=== PATIENT | female | born 1975 | race Caucasian/White ===

== ENCOUNTER → 2018-01-04 | Outpatient (CLI) | payer MEDICAID ==
[~2018-01-04] MED LIST: ACE3 PO; CIT20 PO; CLO5 PO; CLON-303 *; DOXY-229 PO; HYDR50CA47 PO; IBU800 PO; NITR-105 PO; PER PO; TRAZ50 PO; [UNRECOGNIZED DRUG - OTHER]
--- NOTE | 2018-01-05 08:20 | RADIOLOGY IMAGING REPORT ---
FACILITY: [facility] PATIENT NAME: ANA MARÍA PURCELL : [id number] MR: [id number] V: [id number] EXAM DATE: [id number] ORDERING PHYSICIAN: IRINA JAUREGUI TECHNOLOGIST: Shira Marinelli PROCEDURE:BILATERAL DIAGNOSTIC DIGITAL MAMMOGRAM COMPARISON:None. INDICATIONS:RT BREAST PAIN FINDINGS: Moderately heterogeneous fibroglandular tissue is seen throughout the breasts. In the upper portion of the breast in the Right MLO view just anterior to the chest wall there is an elongated area of increased density that is incompletely imaged. This appears to be just lateral to midline on the Right XCC view & also is incompletely imaged. Today's Right breast Ultrasound did reveal an irregular heterogeneous polylobular mass in the 12 o'clock position which may account for the finding. There is increased density breast tissue in the upper outer quadrant of the Left breast with suggestion of a small nodule. A small well circumscribed hypoechoic nodule is demonstrated in the 2 o'clock position Left breast on today's Left breast Ultrasound which will be discussed in a separate report. DIAGNOSTIC CATEGORY 4--SUSPICIOUS FOR MALIGNANCY. RECOMMENDATIONS: ULTRASOUND-GUIDED CORE BIOPSY: RIGHT BREAST. IMPRESSION: BIRADS 4: Suspicious for malignancy. Ultrasound guided core biopsy of the polylobular mass 12 o'clock position of the Right breast recommended. A clip placement following biopsy followed by a Right mammogram is recommended to determine if the area of increased density described above on today's Right mammogram is related to this solid 12 o'clock mass. Dictated by: Sharee Mohr M.D. on 01/04/2018 at 15:07 Transcribed by: MADAY on 01/05/2018 at 7:18 Approved by: Sharee Mohr M.D. on 01/05/2018 at 8:19 [facility]
--- NOTE | 2018-01-05 08:20 | RADIOLOGY IMAGING REPORT ---
FACILITY: [facility] PATIENT NAME: ANA MARÍA PURCELL : [id number] MR: [id number] V: [id number] EXAM DATE: [id number] ORDERING PHYSICIAN: <UNSPECIFIED> TECHNOLOGIST: Linh Walker PROCEDURE:US LEFT BREAST COMPARISON:None. INDICATIONS:FURTHER EVALUATION FINDINGS: In the 2 o'clock position Left breast 10cm from the nipple is a 6 x 3.4 x 5mm well circumscribed ovoid hypoechoic nodule. There's mild acoustic enhancement. This may represent a mild debris filled cyst. No acoustic shadowing is seen. In the 1 o'clock position Left breast 7cm from the nipple is an ovoid 4.6mm nodule without acoustic shadowing. DIAGNOSTIC CATEGORY 3--PROBABLY BENIGN FINDING. RECOMMENDATIONS: SIX MONTH FOLLOW-UP ULTRASOUND: LEFT BREAST. IMPRESSION: BIRADS 3: Probably benign finding A 6 month follow-up Left breast Ultrasound is recommended to document stability of above findings. Dictated by: Sharee Mohr M.D. on 01/04/2018 at 15:10 Transcribed by: PIPPA on 01/05/2018 at 7:51 Approved by: Sharee Mohr M.D. on 01/05/2018 at 8:19 [facility]
--- NOTE | 2018-01-05 11:14 | RADIOLOGY IMAGING REPORT ---
[place] [facility] [place] ANA MARÍA PURCELL : [id number] MR: [id number] V: [id number] EXAM DATE: [id number] ORDERING PHYSICIAN: <UNSPECIFIED> TECHNOLOGIST: Linh Walker PROCEDURE:US RIGHT BREAST COMPLETE COMPARISON:None. INDICATIONS:FURTHER EVALUATION. FINDINGS: In the 12 o'clock position of the Right breast 11cm from the nipple there is a solid polylobular heterogeneous mass measuring 1.2 x 1.1 x 1.2cm. Ultrasound guided core biopsy is recommended. In the 10 o'clock position of the Right breast 7cm from the nipple there is a well circumscribed 4 x 3.6 x 4.7mm hypoechoic nodule. The nodule is wider than tall. There is no acoustic shadowing. A 6 month follow up Right breast Ultrasound is recommended for this nodule. In the 10 o'clock position of the Right breast also 7cm from the nipple is a well circumscribed ovoid hypoechoic nodule measuring 3.2 x 2 x 5mm which is wider than tall with no acoustic shadowing. 6 month follow-up Ultrasound of this nodule also recommended. DIAGNOSTIC CATEGORY 4--SUSPICIOUS FOR MALIGNANCY. RECOMMENDATIONS: SIX MONTH FOLLOW-UP ULTRASOUND: RIGHT BREAST. ULTRASOUND-GUIDED CORE BIOPSY: RIGHT BREAST. IMPRESSION: BIRADS 4: Suspicious for malignancy Ultrasound guided core biopsy of the polylobular heterogeneous mass 12 o'clock position of the Right breast 11cm from the nipple recommended. Post biopsy clip followed by a Right mammogram is recommended to determine if this mass is related to the area of increased density seen just anterior to the chest wall described in Today's mammogram report. A 6 month follow-up Right breast Ultrasound also recommended to evaluate the well circumscribed hypoechoic nodules in the 10 o'clock position of the Right breast as discussed above. Dictated by: Sharee Mohr M.D. on 01/04/2018 at 15:09 Transcribed by: PIPPA on 01/05/2018 at 8:40 Approved by: Sharee Mohr M.D. on 01/05/2018 at 11:14 [facility]
== END ==
LOC: MAMO 08:44
PROVIDERS: ATTEND Nurse Practitioner
DX: N63.21 Unspecified lump in the left breast, upper outer quadrant (principal); R92.8 Other abnormal and inconclusive findings on diagnostic imaging of breast
CPT/HCPCS: 77062; 77066

== ENCOUNTER → 2018-03-01 | Outpatient (CLI) | payer MEDICAID ==
[~2018-03-01] MED LIST changes: +NS(*) 0.9% 10 ML VIAL 10 ML ONE
--- NOTE | 2018-03-01 17:00 | RADIOLOGY IMAGING REPORT ---
[place] [facility] [place]: ANA MARÍA PURCELL : [id number] MR: [id number] V: [id number] EXAM DATE: ORDERING PHYSICIAN: NICHELLE MYERS TECHNOLOGIST: Briana Walker RDMS PROCEDURE: BIOPSY RIGHT BREAST COMPARISON: None. INDICATIONS: POLYLOBULAR MASS HISTORY: 1.5cm mass 12 o'clock Right breast. FINDINGS: Following informed consent & time out the Right breast was prepped and draped in the usual sterile fashion. Approached to the lesion was infiltrated with 1% lidocaine. Thereafter, a small dermatotomy was made and 4 serial 18 gauge biopsies were performed through the lesion yielding excellent samples. These were placed in formalin. A localization clip was then deployed. Post procedure mammogram demonstrates the clip appropriately located in the lesion which is located 12 o'clock Right breast Zone 3. IMPRESSION: 1. Successful ultrasound guided biopsy of a suspicious lesion 12 o'clock Right breast. Pathology results are pending. Dictated by: Shiraz Guerrero M.D. on 03/01/2018 at 14:19 Transcribed by: PIPPA on 03/01/2018 at 15:43 Approved by: Shiraz Guerrero M.D. on 03/01/2018 at 16:59 [facility]
--- NOTE | 2018-03-01 17:00 | RADIOLOGY IMAGING REPORT ---
FACILITY: [facility] PATIENT NAME: ANA MARÍA PURCELL : [id number] MR: [id number] V: [id number] EXAM DATE: ORDERING PHYSICIAN: NICHELLE MYERS TECHNOLOGIST: Briana Walker RDMS PROCEDURE: BIOPSY RIGHT BREAST COMPARISON: None. INDICATIONS: POLYLOBULAR MASS HISTORY: 1.5cm mass 12 o'clock Right breast. FINDINGS: Following informed consent & time out the Right breast was prepped and draped in the usual sterile fashion. Approached to the lesion was infiltrated with 1% lidocaine. Thereafter, a small dermatotomy was made and 4 serial 18 gauge biopsies were performed through the lesion yielding excellent samples. These were placed in formalin. A localization clip was then deployed. Post procedure mammogram demonstrates the clip appropriately located in the lesion which is located 12 o'clock Right breast Zone 3. IMPRESSION: 1. Successful ultrasound guided biopsy of a suspicious lesion 12 o'clock Right breast. Pathology results are pending. Dictated by: Shiraz Guerrero M.D. on 03/01/2018 at 14:19 Transcribed by: PIPPA on 03/01/2018 at 15:43 Approved by: Shiraz Guerrero M.D. on 03/01/2018 at 16:59 [facility]
== END ==
LOC: US 02:17
PROVIDERS: ATTEND Obstetrics & Gynecology
DX: Z01.812 Encounter for preprocedural laboratory examination (principal); D24.1 Benign neoplasm of right breast
CPT/HCPCS: 19083; 36415; 77061; 77065; 85610; 88305; 88344

== ENCOUNTER → 2018-12-17 | Outpatient (CLI) | payer MEDICAID ==
[~2018-12-17] MED LIST changes: -NS(*) 0.9% 10 ML VIAL 10 ML ONE
--- NOTE | 2018-12-17 15:14 | RADIOLOGY IMAGING REPORT ---
FACILITY: [facility] PATIENT NAME: ANA MARÍA PURCELL : [id number] MR: [id number] V: [id number] EXAM DATE: [id number] ORDERING PHYSICIAN: MODESTA SPARKS TECHNOLOGIST: Tesha Bedolla RDMS(ABD,OBGYN,BR),RVT PROCEDURE:US BILATERAL BREAST COMPARISON:Prior Right breast Ultrasound of 01/04/18 & prior Left breast Ultrasound of 01/04/18 INDICATIONS:6 month follow up FINDINGS: In the 12 o'clock position of the Right breast 10cm from the nipple there is a circumscribed polylobular hypoechoic mass measuring 1.5 x 1.4 x 1.2cm. 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 When measured in the same tissue plane this mass is relatively unchanged in size. In the 10 o'clock position of the Right breast 7cm from the nipple there is a well circumscribed 4.3mm hypoechoic nodule that appears unchanged. In the 2 o'clock position of the Right breast 10cm from the nipple there is a 5.5mm cyst. In the Left breast 2 o'clock position 10cm from the nipple there is a 6mm ovoid hypoechoic well circumscribed nodule. This may represent a mild debris filled cyst. This appears unchanged. The previously noted nodule in the 1 o'clock position of the Left breast is no longer seen. DIAGNOSTIC CATEGORY 3--PROBABLY BENIGN FINDING. RECOMMENDATIONS: SIX MONTH FOLLOW-UP ULTRASOUND: RIGHT BREAST. IMPRESSION: BIRADS 3: Probably benign finding. Hypoechoic nodules in the Right breast have remained stable. A 6 month follow up Right breast Ultrasound is recommended to document stability unless clinical findings warrant more immediate attention. Dictated by: Sharee Mohr M.D. on 12/17/2018 at 14:46 Transcribed by: MADAY on 12/17/2018 at 15:05 Approved by: Sharee Mohr M.D. on 12/17/2018 at 15:13 [facility]
--- NOTE | 2018-12-17 15:14 | RADIOLOGY IMAGING REPORT ---
FACILITY: [facility] PATIENT NAME: ANA MARÍA PURCELL : [id number] MR: [id number] V: [id number] EXAM DATE: [id number] ORDERING PHYSICIAN: MODESTA SPARKS TECHNOLOGIST: Shira Marinelli PROCEDURE:BILATERAL DIAGNOSTIC DIGITAL MAMMOGRAM WITH CAD ASSISTED INTERPRETATION & 3D TOMOSYNTHESIS COMPARISON:Prior mammograms dated 01/04/18 INDICATIONS:FOLLOW UP FINDINGS: The breasts are heterogeneously dense which can obscure small masses. There is a biopsy clip in the ovoid nodular density in the 12 o'clock position of the Right breast in the posterior third. This was shown by biopsy to represent a fibroadenoma. The remainder of the parenchymal pattern has remained stable. DIAGNOSTIC CATEGORY 3--PROBABLY BENIGN FINDING. RECOMMENDATIONS: SIX MONTH FOLLOW-UP ULTRASOUND: RIGHT BREAST. IMPRESSION: BIRADS 3: Probably benign finding. A 6 month follow up Right breast Ultrasound recommended as discussed in today's Right breast Ultrasound report. Dictated by: Sharee Mohr M.D. on 12/17/2018 at 14:51 Transcribed by: MADAY on 12/17/2018 at 14:59 Approved by: Sharee Mohr M.D. on 12/17/2018 at 15:13 [facility]
== END ==
LOC: MAMO 08-20 01:59
PROVIDERS: ATTEND Obstetrics & Gynecology
DX: R92.2 Inconclusive mammogram (principal)
CPT/HCPCS: 77062; 77066